=== PATIENT | male | born 2000 | race Caucasian/White ===

== ENCOUNTER 2019-11-15 10:55 | Emergency (ER) | payer MEDICAID, OTHER ==
[~2019-11-15] VITALS: Ht 188 cm; Wt 87.0 kg
[2019-11-15] MEDS ORDERED: ACETAMINOPHEN 325MG TABLET PO ONE (11:30)
[2019-11-15] MEDS ORDERED: BACITRACIN ZINC OINT UDPKT TOP ONE (12:30)
[2019-11-15 12:42] VITALS: BP 118/60
== END 2019-11-15 12:45 | disposition home or self-care (01) ==
LOC: ER 10:55
DX: S93.401A Sprain of unspecified ligament of right ankle, initial encounter (principal); S30.810A Abrasion of lower back and pelvis, initial encounter; S09.90XA Unspecified injury of head, initial encounter; H92.01 Otalgia, right ear; R42 Dizziness and giddiness; F12.10 Cannabis abuse, uncomplicated; V29.88XA Motorcycle rider (driver) (passenger) injured in other specified transport accidents, initial encounter; Y93.55 Activity, bike riding; Y92.89 Other specified places as the place of occurrence of the external cause; Y99.8 Other external cause status
CPT/HCPCS: 70486; 99285

== ENCOUNTER 2020-10-07 20:31 | Emergency (ER) | payer MEDICAID, OTHER ==
[~2020-10-07] VITALS: Ht 185.4 cm; Wt 88.0 kg
[2020-10-07 20:43] VITALS: BP 141/81
[2020-10-07] MEDS ORDERED: LORAZEPAM 1MG TABLET PO ONE (21:15)
[2020-10-07] MEDS ORDERED: DIPHENHYDRAMINE 50MG/ML VIAL IM ONE (21:15)
== END 2020-10-07 21:55 | disposition home or self-care (01) ==
LOC: ER 20:31
DX: M62.838 Other muscle spasm (principal); F12.10 Cannabis abuse, uncomplicated; Z86.59 Personal history of other mental and behavioral disorders
CPT/HCPCS: 96372; 99283; J1200

== ENCOUNTER 2020-10-09 16:47 | Emergency (ER) | payer MEDICAID ==
[~2020-10-09] VITALS: Ht 185.4 cm; Wt 88.0 kg
[2020-10-09] MEDS ORDERED: DIPHENHYDRAMINE 50MG/ML VIAL IV ONE ×2 (17:15→21:30)
[2020-10-09] MEDS ORDERED: SODIUM CHLORIDE 0.9% 1,000 ML IV ONE (17:15)
[2020-10-09 17:23] LABS: BASOPHILS % 0.5 % (0.0-2.0); HEMATOCRIT. 43.7 % (42.0-52.0); LYMPHOCYTES % 51.4 % (20.0-50.0); MEAN CORPUSCULAR HEMOGLOBIN 31.6 pg (28.0-32.0); MEAN CORPUSCULAR VOLUME 91.8 fL (80.0-94.0); MEAN PLATELET VOLUME 10.6 fl (7.4-10.4); MONOCYTES % 7.8 % (2.0-8.0); NEUTROPHILS % 38.3 % (40.0-76.0); PLATELET 170 x1000/uL (130-400); RED BLOOD CELL COUNT 4.75 mill/uL (4.7-6.1); RED CELL DISTRIBUTION WIDTH 12.5 % (11.6-14.6)
[2020-10-09 17:30] LABS: CHLORIDE 106 mEq/L (98-107)
[2020-10-09 17:34] LABS: ETHANOL BLOOD < 10 mg/dL
[2020-10-09 17:38] LABS: CREATINE KINASE 689 IU/L (39-308)
[2020-10-09 19:46] LABS: CLARITY URINE CLEAR (CLEAR); COLOR URINE YELLOW (YELLOW); KETONES URINE NEGATIVE (NEGATIVE); LEUKOCYTE ESTERASE URINE NEGATIVE (NEGATIVE); NITRITE URINE NEGATIVE (NEGATIVE); OCCULT BLOOD URINE NEGATIVE (NEGATIVE); PROTEIN URINE NEGATIVE (NEGATIVE); SPECIFIC GRAVITY URINE 1.015 (1.005-1.030); UROBILINOGEN URINE 0.2 E.U./dL (0.2-1.0)
[2020-10-09 20:28] LABS: *AMPHETAMINES SCREEN URINE NEGATIVE (NEGATIVE); *BARBITURATES SCREEN URINE NEGATIVE (NEGATIVE); *BENZODIAZEPINES SCREEN URINE NEGATIVE (NEGATIVE); *COCAINE SCREEN URINE NEGATIVE (NEGATIVE)
[2020-10-09 20:29] LABS: CANNABINOID URINE SCREEN NEGATIVE (NEGATIVE); METHADONE URINE SCREEN NEGATIVE (NEGATIVE); OPIATES URINE SCREEN NEGATIVE (NEGATIVE); PHENCYCLIDINE URINE SCREEN NEGATIVE (NEGATIVE)
[2020-10-09] MEDS ORDERED: B50 MT (21:01)
[2020-10-09] MEDS ORDERED: LORAZEPAM 2MG/ML CPJ IV ONE (21:15)
[2020-10-09 22:04] VITALS: BP 112/62
== END 2020-10-09 22:07 | disposition home or self-care (01) ==
LOC: ER 16:47
DX: T43.4X5A Adverse effect of butyrophenone and thiothixene neuroleptics, initial encounter (principal); Y92.89 Other specified places as the place of occurrence of the external cause; F41.9 Anxiety disorder, unspecified; F31.9 Bipolar disorder, unspecified; F12.10 Cannabis abuse, uncomplicated
CPT/HCPCS: 36415; 80053; 80305; 80307; 80320; 80329; 81003; 82550; 85025; 93005; 96361; 96374; 96375; 96376; 99285; J1200; J2060; J7030; G0480

== ENCOUNTER 2021-10-22 22:24 | Emergency (ER) | payer MEDICAID ==
[~2021-10-22] VITALS: Ht 190.5 cm; Wt 91.5 kg
[~2021-10-22 22:24] MED LIST: B50 MT
[2021-10-22 22:32] VITALS: BP 133/80
[2021-10-22] MEDS ORDERED: ACETAMINOPHEN 325MG TABLET PO ONE (23:15)
[2021-10-23] MEDS ORDERED: BACITRACIN 15GM TUBE TOP ONE (01:30)
== END 2021-10-23 06:16 | disposition home or self-care (01) ==
LOC: ER 23:17
DX: S09.8XXA Other specified injuries of head, initial encounter (principal); L08.89 Other specified local infections of the skin and subcutaneous tissue; F20.9 Schizophrenia, unspecified; F12.10 Cannabis abuse, uncomplicated; Y08.89XA Assault by other specified means, initial encounter; Y93.89 Activity, other specified; Y92.89 Other specified places as the place of occurrence of the external cause
CPT/HCPCS: 99282

== ENCOUNTER 2024-01-24 16:11 | Emergency (ER) | payer MEDICAID ==
[~2024-01-24] VITALS: Ht 190.5 cm; Wt 109.0 kg
[2024-01-24 16:27] VITALS: BP 128/72; PULSE 92; RESP 18; TEMP 98.4; O2SAT 97
== END 2024-01-24 17:43 | disposition left against medical advice (07) ==
LOC: ER 16:11
DX: R19.7 Diarrhea, unspecified (principal); R09.81 Nasal congestion
CPT/HCPCS: 99281